=== PATIENT | male | born 1965 | race Hispanic/Latino ===

== ENCOUNTER 2017-10-18 09:11 | Observation (INO) | payer BC, OTHER ==
[~2017-10-18 09:11] MED LIST: MARCAINE-EPI 0.5%-1:200,000 INFILTRATI ONE
[2017-10-18] MEDS ORDERED: ZEMURON IV ONE (10:43)
[2017-10-18] MEDS ORDERED: QUELICIN ONE (10:43)
[2017-10-18] MEDS ORDERED: DIPRIVAN 10 MG/ML IV ONE (10:43)
[2017-10-18] MEDS ORDERED: XYLOCAINE MPF 2% ONE (10:43)
[2017-10-18] MEDS ORDERED: SUBLIMAZE ONE (10:43)
[2017-10-18] MEDS ORDERED: MARCAINE-EPI 0.5%-1:200,000 INFILTRATI ONE (10:50)
--- NOTE | 2017-10-18 10:58 | Anesthesia Day of Surgery ---
Anesthesia Day of Surgery - Day of Surgery Patient Examined: Yes Patient H&P Reviewed: Yes Patient is NPO: Yes
--- NOTE | 2017-10-18 10:58 | Anesthesia Consultation ---
Anesthesia Consult and Med Hx Date of service: 10/18/17 - Airway Anesthetic Teeth Evaluation: Good ROM Head & Neck: Adequate Mental/Hyoid Distance: Adequate Mallampati Class: Class II Intubation Access Assessment: Good - Pulmonary Exam CTA: Yes - Cardiac Exam Cardiac Exam: RRR - Pre-Operative Health Status ASA Pre-Surgery Classification: ASA3 Proposed Anesthetic Plan: General - Pulmonary Hx Sleep Apnea: Yes - Cardiovascular System Hx Hypertension: Yes (6 YEARS) - Endocrine Hx Hypothyroidism: Yes - Other Systems Hx Obesity: Yes
[2017-10-18] MEDS ORDERED: ceFAZolin 2 GM in NACL 0.9% 100 ML IV ONE (11:00)
[2017-10-18] MEDS ORDERED: PEPCID PO NR (11:00)
[2017-10-18] MEDS ORDERED: VERSED IV NR (11:00)
[2017-10-18] MEDS ORDERED: LACTATED RINGERS 1,000 ML IV SCH (11:00)
[2017-10-18] MEDS ORDERED: ZOFRAN ONE ×2 (11:23→14:38)
[2017-10-18] MEDS ORDERED: REGLAN ONE (11:23)
[2017-10-18] MEDS ORDERED: ANCEF/STERILE WATER 2 GM/20 ML 2 GM/20 ML SYRINGE IV NR (12:00)
[2017-10-18] MEDS ORDERED: ROBINUL ONE ×2 (12:01→12:28)
[2017-10-18] MEDS ORDERED: BLOXIVERZ ONE (12:28)
[2017-10-18] MEDS ORDERED: LACTATED RINGERS 1,000 ML ONE (12:34)
[2017-10-18] MEDS ORDERED: ZOFRAN IV PRN (13:34)
--- NOTE | 2017-10-18 13:37 | Operative Report ---
PREOPERATIVE DIAGNOSIS: Rule out recurrent incisional hernia. POSTOPERATIVE DIAGNOSIS: Rule out recurrent incisional hernia. PROCEDURE: 1. Diagnostic laparoscopy. 2. Lysis of extensive omental and intestinal adhesions. 3. Recurrent incisional hernia repair with mesh. SURGEON: Darius Ivan MD HOUSE ADMIN: Yoko Regalado MD. ANESTHESIA: General. ESTIMATED BLOOD LOSS: Minimal. DRAINS: No drains. COMPLICATIONS: No complications. DESCRIPTION OF PROCEDURE: The patient was taken to the operating room, prepped and draped in usual sterile fashion. Veress needle was inserted and CO2 insufflation begun. A 5 mm trocar was then inserted and camera inserted. Inspection of the area revealed extensive omental and intestinal adhesions entrapped into the recurrent incisional hernia site, appeared very slow and tedious. Dissection had to be carried out initially freeing all the omentum and then subsequently slowly dissecting the bowel serosa from the mesh proper. Because of this extensive lysing of adhesions right on the bowel serosa, it was decided that the patient will be admitted and observed overnight to assure no bowel injuries. All adhesions were lysed and the intestine and omentum brought back down to its anatomical position. This area was carefully inspected for any iatrogenic injuries and none were noted. No bleeding or oozing noted. No intestinal leakage or succus entericus noted. A Ventralex large circular mesh was then placed through a 12 mm trocar through the center portion of the hernia site. The mesh was then slowly brought back out snug to the peritoneal surface. Tackers were used to tack the mesh in its entire circumference and then subsequently an internal tacking circles also applied. The area was then carefully inspected and the defect noted to be well covered. No other defects noted. The intestine and omentum were once again inspected and no bleeding or oozing seen. The fascia anterior to the mesh insertion site was also closed with interrupted 0 Vicryl suture. The two lateral 5 mm port sites were removed under direct visualization. No bleeding or oozing noted. The final 5 mm port site was used to expel the CO2 and the trocar removed. All area was then irrigated copiously and dried. Checked for hemostasis and noted to be dry. The skin at all port sites was closed with subcuticular 4-0 Vicryl. A 0.5% Marcaine with epinephrine was infiltrated over all the port sites for postop pain relief. Steri-Strips, 2 x 2 and Tegaderm were applied. Abdominal binder will also be placed. The patient tolerated the procedure well, left the OR in stable condition. JOB# [id number] TRAVIS/CHAUNCEY
[2017-10-18] MEDS: DILAUDID IV PRN ×4 (13:46→14:15)
[2017-10-18] MEDS ORDERED: DILAUDID ONE (14:26)
[2017-10-18] MEDS: D5W/0.45% NACL/KCL 30 MEQ 30 MEQ/1,000 ML BAG IV SCH ×2 (16:24→23:38)
[2017-10-18] MEDS: ZOFRAN IV PRN (17:28)
[2017-10-18] MEDS: ANCEF/NS 1 GM/50 ML 1 GM/50 ML BAG IV SCH ×2 (17:58→21:58)
[2017-10-18] MEDS: MORPHINE IV PRN (21:58)
[2017-10-19 04:46] LABS: Basophils % (Auto) 0.2 % (0.0-1.8); Eosinophils % (Auto) 0.3 % (0.0-4.3); Hematocrit 39.5 % (35.5-45.6); Hemoglobin 13.4 gm/dl (11.8-15.2); Lymphocytes # (Auto) 0.6 K/mm3 (1.2-5.4); Mean Corpuscular HGB Conc 34 % (32-34); Mean Corpuscular Hemoglobin 29 pg (28-32); Mean Corpuscular Volume 87 fl (84-94); Monocytes # (Auto) 1.5 K/mm3 (0.0-0.8); Monocytes % (Auto) 9.9 % (0.0-7.3); Platelet Count 182 K/mm3 (140-440); Red Blood Count 4.57 M/mm3 (3.65-5.03); Red Cell Distribution Width 14.6 % (13.2-15.2)
[2017-10-19 05:02] LABS: Alanine Aminotransferase 21 units/L (7-56); Albumin 3.7 g/dL (3.9-5); BUN/Creatinine Ratio 16; Blood Urea Nitrogen 14 mg/dL (9-20); Calcium 8.7 mg/dL (8.4-10.2); Hemolysis Index 2
[2017-10-19] MEDS: ZOFRAN IV PRN ×3 (05:19→20:31)
[2017-10-19] MEDS: MORPHINE IV PRN (05:19)
--- NOTE | 2017-10-19 07:50 | Progress Note ---
Assessment and Plan POD #1 Pt feeling well but had episode of N&V with ice chips this am Abd soft. incisional tenderness. hypoactive BS stable will need to keep npo and observe x another 24 hrs. Do not want pt wrenching or vomiting with recent incisional hernia repair re-assess in am d/c K from IVF Selected Entries 10/18/17 10/19/17 23:46 05:30 Temperature 98.6 F Pulse Rate 77 Respiratory 18 Rate Blood Pressure 118/60 Laboratory Tests 10/19/17 10/19/17 04:10 04:10 WBC 15.4 H Hgb 13.4 Hct 39.5 Sodium 138 Potassium 4.5 Chloride 100.4 BUN 14 Creatinine 0.9 Objective Vital Signs - 12hr 10/18/17 10/18/17 10/19/17 19:48 23:46 05:30 Temperature 98.3 F 98.6 F Pulse Rate 71 63 77 Respiratory 20 18 18 Rate Blood Pressure 133/71 112/60 118/60 O2 Sat by Pulse 97 96 92 Oximetry - Labs 10/19/17 04:10 10/19/17 04:10 Diabetes panel 10/19/17 Range/Units 04:10 Sodium 138 (137-145) mmol/L Potassium 4.5 (3.6-5.0) mmol/L Chloride 100.4 (98-107) mmol/L Carbon Dioxide 26 (22-30) mmol/L BUN 14 (9-20) mg/dL Creatinine 0.9 (0.8-1.5) mg/dL Glucose 132 H (75-100) mg/dL Calcium 8.7 (8.4-10.2) mg/dL AST 15 (5-40) units/L ALT 21 (7-56) units/L Alkaline Phosphatase 57 (35-129) units/L Total Protein 6.3 (6.3-8.2) g/dL Albumin 3.7 L (3.9-5) g/dL Calcium panel 10/19/17 Range/Units 04:10 Calcium 8.7 (8.4-10.2) mg/dL Albumin 3.7 L (3.9-5) g/dL Pituitary panel 10/19/17 Range/Units 04:10 Sodium 138 (137-145) mmol/L Potassium 4.5 (3.6-5.0) mmol/L Chloride 100.4 (98-107) mmol/L Carbon Dioxide 26 (22-30) mmol/L BUN 14 (9-20) mg/dL Creatinine 0.9 (0.8-1.5) mg/dL Glucose 132 H (75-100) mg/dL Calcium 8.7 (8.4-10.2) mg/dL Adrenal panel 10/19/17 Range/Units 04:10 Sodium 138 (137-145) mmol/L Potassium 4.5 (3.6-5.0) mmol/L Chloride 100.4 (98-107) mmol/L Carbon Dioxide 26 (22-30) mmol/L BUN 14 (9-20) mg/dL Creatinine 0.9 (0.8-1.5) mg/dL Glucose 132 H (75-100) mg/dL Calcium 8.7 (8.4-10.2) mg/dL Total Bilirubin 0.40 (0.1-1.2) mg/dL AST 15 (5-40) units/L ALT 21 (7-56) units/L Alkaline Phosphatase 57 (35-129) units/L Total Protein 6.3 (6.3-8.2) g/dL Albumin 3.7 L (3.9-5) g/dL
--- NOTE | 2017-10-19 08:48 | Consultation ---
History of Present Illness - Reason for Consult Consult date: 10/19/17 Hypertension, Hypothyroidism, sleep apnea Past History Past Medical History: hypertension, hypothyroidism, other (Obstructive sleep apnea) Past Surgical History: hernia repair Social history: , lives with family, full code. denies: smoking, alcohol abuse Family history: hypertension Medications and Allergies Allergies Allergy/AdvReac Type Severity Reaction Status Date / Time No Known Allergies Allergy Verified 10/15/17 13:31 Home Medications Medication Instructions Recorded Confirmed Last Taken Type Fexofenadine HCl [Emily Allergy] 180 mg PO DAILY 10/15/17 10/15/17 10/17/17 History Levothyroxine [Synthroid] 88 mcg PO QAM 10/15/17 10/15/17 10/18/17 07:20 History Losartan [Cozaar] 100 mg PO QDAY 10/15/17 10/15/17 10/18/17 07:20 History diphenhydrAMINE [Benadryl CAP] 50 mg PO Q8HR PRN 10/15/17 10/15/17 10/17/17 History Active Meds: Active Medications Dextrose/Sodium Chloride (D5/0.45ns) 1,000 mls @ 125 mls/hr IV DIRECT DIA Morphine Sulfate (Morphine) 2 mg IV Q3H PRN PRN Reason: Pain, Moderate (4-6) Last Admin: 10/19/17 05:19 Dose: 2 mg Ondansetron HCl (Zofran) 4 mg IV Q4H PRN PRN Reason: N/V unrelieved by Reglan Last Admin: 10/19/17 05:19 Dose: 4 mg Oxycodone/Acetaminophen (Percocet 5/325) 1 tab PO Q6H PRN PRN Reason: Pain, Moderate (4-6) Exam - Physical Exam Narrative exam: GEN:Not in acute distress, HEENT: Normocephalic, atraumatic, Neck: supple, No JVD Lungs:Clear to auscultation bilaterally, no crackles, no wheeze Heart:S1 and S2 reg, no murmurs, rubs or gallop Abd:soft, non-tender, non-distended, Normal bowel sounds Ext: No edema, clubbing or cyanosis Neuro:AAO x 3, No focal neurological signs - Constitutional Vitals: Temp Pulse Resp BP Pulse Ox 97.9 F 71 18 103/60 92 10/19/17 07:37 10/19/17 07:37 10/19/17 07:37 10/19/17 07:37 10/19/17 07:37 Results - Labs CBC & Chem 7: 10/19/17 04:10 10/19/17 04:10 Labs: Abnormal lab results 10/19/17 10/19/17 Range/Units 04:10 04:10 WBC 15.4 H (4.5-11.0) K/mm3 Lymph % (Auto) 4.0 L (13.4-35.0) % Traverse % (Auto) 9.9 H (0.0-7.3) % Lymph # 0.6 L (1.2-5.4) K/mm3 Traverse # 1.5 H (0.0-0.8) K/mm3 Seg Neutrophils % 85.6 H (40.0-70.0) % Seg Neutrophils # 13.2 H (1.8-7.7) K/mm3 Glucose 132 H (75-100) mg/dL Albumin 3.7 L (3.9-5) g/dL Assessment and Plan s/p Hernia repair. management per Surgeon, attending Hypertension. BP stable. Will resume home meds when he starts po Hypothyroidism Sleep apnea. CPAP at night, Resp Therapist consulted Full code status
[2017-10-19] MEDS ORDERED: D5/0.45NS 1,000 ML IV SCH (09:00)
[2017-10-19] MEDS: PERCOCET 5/325 PO PRN ×2 (13:09→20:31)
[2017-10-19] MEDS ORDERED: DULCOLAX PR PRN (13:50)
[2017-10-20 11:48] VITALS: BP 149/87
--- NOTE | 2017-10-20 12:34 | Progress Note ---
Assessment and Plan Assessment and plan: s/p Hernia repair. management per Surgeon, attending Hypertension. BP stable. Will resume home meds when he starts oral feeds ,likely later today Hypothyroidism Sleep apnea. CPAP at night, Resp Therapist consulted Full code status History Interval history: Feels better, wants to eat No more vomiting Hospitalist Physical - Physical exam Narrative exam: GEN:Not in acute distress, HEENT: Normocephalic, atraumatic, Neck: supple, No JVD Lungs:Clear to auscultation bilaterally, no crackles, no wheeze Heart:S1 and S2 reg, no murmurs, rubs or gallop Abd:soft, non-tender, non-distended, Normal bowel sounds, abdominal binder covering surgical wound Ext: No edema, clubbing or cyanosis Neuro:AAO x 3, No focal neurological signs - Constitutional Vitals: Temp Pulse Resp BP Pulse Ox 97 F L 72 18 149/87 96 10/20/17 11:47 10/20/17 11:47 10/20/17 11:47 10/20/17 11:47 10/20/17 11:47 Results - Labs CBC & Chem 7: 10/19/17 04:10 10/19/17 04:10 Labs: Laboratory Last Values WBC 15.4 K/mm3 (4.5-11.0) H 10/19/17 04:10 RBC 4.57 M/mm3 (3.65-5.03) 10/19/17 04:10 Hgb 13.4 gm/dl (11.8-15.2) 10/19/17 04:10 Hct 39.5 % (35.5-45.6) 10/19/17 04:10 MCV 87 fl (84-94) 10/19/17 04:10 MCH 29 pg (28-32) 10/19/17 04:10 MCHC 34 % (32-34) 10/19/17 04:10 RDW 14.6 % (13.2-15.2) 10/19/17 04:10 Plt Count 182 K/mm3 (140-440) 10/19/17 04:10 Lymph % (Auto) 4.0 % (13.4-35.0) L 10/19/17 04:10 Wood % (Auto) 9.9 % (0.0-7.3) H 10/19/17 04:10 Eos % (Auto) 0.3 % (0.0-4.3) 10/19/17 04:10 Baso % (Auto) 0.2 % (0.0-1.8) 10/19/17 04:10 Lymph # 0.6 K/mm3 (1.2-5.4) L 10/19/17 04:10 Wood # 1.5 K/mm3 (0.0-0.8) H 10/19/17 04:10 Eos # 0.0 K/mm3 (0.0-0.4) 10/19/17 04:10 Baso # 0.0 K/mm3 (0.0-0.1) 10/19/17 04:10 Seg Neutrophils % 85.6 % (40.0-70.0) H 10/19/17 04:10 Seg Neutrophils # 13.2 K/mm3 (1.8-7.7) H 10/19/17 04:10 Sodium 138 mmol/L (137-145) 10/19/17 04:10 Potassium 4.5 mmol/L (3.6-5.0) 10/19/17 04:10 Chloride 100.4 mmol/L (98-107) 10/19/17 04:10 Carbon Dioxide 26 mmol/L (22-30) 10/19/17 04:10 Anion Gap 16 mmol/L 10/19/17 04:10 BUN 14 mg/dL (9-20) 10/19/17 04:10 Creatinine 0.9 mg/dL (0.8-1.5) 10/19/17 04:10 Estimated GFR > 60 ml/min 10/19/17 04:10 BUN/Creatinine Ratio 16 % 10/19/17 04:10 Glucose 132 mg/dL (75-100) H 10/19/17 04:10 Calcium 8.7 mg/dL (8.4-10.2) 10/19/17 04:10 Total Bilirubin 0.40 mg/dL (0.1-1.2) 10/19/17 04:10 AST 15 units/L (5-40) 10/19/17 04:10 ALT 21 units/L (7-56) 10/19/17 04:10 Alkaline Phosphatase 57 units/L (35-129) 10/19/17 04:10 Total Protein 6.3 g/dL (6.3-8.2) 10/19/17 04:10 Albumin 3.7 g/dL (3.9-5) L 10/19/17 04:10 Albumin/Globulin Ratio 1.4 % 10/19/17 04:10
--- NOTE | 2017-10-20 12:35 | Progress Note ---
Assessment and Plan POD # 2 Pt feeling well without compl. + flatus. ambulating down halls. hungry Abd soft. non tender. hypoactive BS surgically stable attempt cl liq diet may d/c today if diet ang advance to reg diet at home in am rto this Tues Selected Entries 10/20/17 11:47 Temperature 97 F L Pulse Rate 72 Respiratory 18 Rate Blood Pressure 149/87 [Left] Laboratory Tests 10/19/17 10/19/17 04:10 04:10 WBC 15.4 H Hgb 13.4 Hct 39.5 Sodium 138 Potassium 4.5 Chloride 100.4 BUN 14 Creatinine 0.9 Objective Vital Signs - 12hr 10/20/17 10/20/17 10/20/17 04:20 07:09 11:47 Temperature 98.6 F 97.9 F 97 F L Pulse Rate 63 66 72 Respiratory 18 20 18 Rate Blood Pressure 141/76 143/79 Blood Pressure 149/87 [Left] O2 Sat by Pulse 93 96 96 Oximetry - Labs 10/19/17 04:10 10/19/17 04:10
--- NOTE | 2017-10-20 12:42 | Discharge Summary ---
Providers - Providers Date of Admission: 10/18/17 12:40 Attending physician: LINN ELY 10/18/17 12:44 Consult to Physician [CONS] Routine Comment: Consulting Provider: ABHAY RICHARDSON Physician Instructions: Reason For Exam: medical management Primary care physician: ABIODUN ASENCIO Hospitalization Condition: Stable Disposition: DC-01 TO HOME OR SELFCARE Core Measure Documentation - Palliative Care Palliative Care/ Comfort Measures: Not Applicable - Core Measures Any of the following diagnoses?: none Exam - Constitutional Vitals: Temp Pulse Resp BP Pulse Ox 97 F L 72 18 149/87 96 10/20/17 11:47 10/20/17 11:47 10/20/17 11:47 10/20/17 11:47 10/20/17 11:47 Plan Activity: other (cl liq diet no carbonated. may d/c today if diet ang advance to solid diet at home in am. no lifting. keep binder x 3 wks. dressings dry x 5 days) Weight Bearing Status: Non-Weight Bearing Diet: other Wound: keep clean and dry Additional Instructions: surfak I po q am x 3. aleve I po q 6-8 hrs prn for breakthrough pain Follow up with: LINN ELY MD [Staff Physician] - 10/23/17
--- NOTE | 2017-10-20 12:57 | Discharge Summary ---
DISCHARGE DIAGNOSES: 1. Recurrent incisional hernia with significant omental, intestinal adhesions. 2. Hypertension. 3. Morbid obesity. PROCEDURE WHILE IN THE HOSPITAL: Laparoscopic lysis of extensive intestinal, omental adhesions as well as laparoscopic repair of recurrent incisional hernia with mesh. HOSPITAL COURSE: The patient is a pleasant 52-year-old gentleman who presented to the office with a chief complaint of periumbilical pain. The patient had had previous laparoscopic surgery and subsequently developed hernia at the infraumbilical trocar site. This was apparently repaired with mesh previously, but has since recurred. The patient was thus referred to me for repair as the area was symptomatic and bulging. The patient underwent repair without incident. At time of surgery, extensive intestinal, omental adhesions were noted, which were adhered to the undersurface of the previously placed mesh. Recurrent incisional hernia was also confirmed. The patient's postoperative course was essentially stable. He was originally kept 23-hour observation because of the large amount of very adhered intestine that had to be dissected from the mesh site. Subsequently to this, the patient did complain of nausea after 23 hours and did have some persistent abdominal distention. Thus, the patient was observed for following 24 hours. Hospitalist evaluation was also obtained to manage the patient's hypertension, sleep apnea, etc. Currently, the patient is postoperative day #2, afebrile and feeling well. He has since passed flatus and has no complaints. He has ambulated down the halls and is hungry. Abdomen is soft and nontender. Bowel sounds are present though somewhat hypoactive. The patient will thus be started on a clear liquid diet. No carbonated drinks this morning and will tentatively be discharged today if his diet is well tolerated. The patient has been instructed to call me immediately if he has any evidence of nausea, vomiting, abdominal pain, or fever. If not, the patient has been instructed to advance himself to a solid diet at home in the morning and follow up in the office this Sunday. JOB# [id number] TRAVIS/CHAUNCEY
== END 2017-10-20 15:42 | disposition home or self-care (01) ==
LOC: OR 09:11 → 3B-SURG 12:40
PROVIDERS: ADMIT Surgery; ATTEND Surgery
DX: K43.9 Ventral hernia without obstruction or gangrene (principal)
CPT/HCPCS: 36415; 49657; 80053; 85025; 96365; 96375; 96376; C1781; G0378; J0330; J0690; J1170; J2250; J2270; J2405; J2704; J2710; J2765; J3010; J7120

== ENCOUNTER 2018-10-23 22:17 | Emergency (ER) | payer OTHER ==
--- NOTE | 2018-10-23 22:33 | Emergency Department Report ---
Blank Doc - Documentation Documentation: This is a 53-year-old male that presents with right wrist pain s/p fall. This initial assessment/diagnostic orders/clinical plan/treatment(s) is/are subject to change based on patient's health status, clinical progression and re- assessment by fellow clinical providers in the ED. Further treatment and workup at subsequent clinical providers discretion. Patient/guardians urged not to elope from the ED as their condition may be serious if not clinically assessed and managed. Initial orders include: 1- Patient sent to [facility] for further evaluation and treatment 2- xrays
--- NOTE | 2018-10-23 23:21 | XRay Report ---
RIGHT WRIST 2 VIEWS INDICATION / CLINICAL INFORMATION: pain s/p fall. COMPARISON: None available. FINDINGS: There is a moderately displaced comminuted fracture of the right distal radial metaphysis with extens ion into radiocarpal and distal radioulnar joints. A mildly displaced ulna styloid fracture is also n oted. Several avulsion fracture fragments are seen along the dorsal aspect of the wrist with donor site see n in the dorsal aspect of the triquetral bone area and Marked soft tissue swelling is seen within the right wrist. Signer Name: Maciej Webb MD Signed: 10/23/2018 11:17 PM Workstation Name: [id number]
[2018-10-23] MEDS ORDERED: IBUPROFEN PO ONE (23:42)
[2018-10-23] MEDS ORDERED: PERCOCET 5/325 PO ONE (23:42)
--- NOTE | 2018-10-23 23:58 | Emergency Department Report ---
ED Fall HPI - General Chief Complaint: Extremity Injury, Upper Stated Complaint: RT WRIST INJURY/FALL Time Seen by Provider: 10/23/18 22:33 Source: patient Mode of arrival: Ambulatory - History of Present Illness Initial Comments: 53-year-old male presents to the emergency room for right wrist pain and swelling status post fall 40 minutes prior to arrival. Patient states he stepped down off a porch step wrong and fell on his right wrist. Patient reports he took a hydrocodone prior to arrival which he reports has not touched his pain. Patient does have a past medical history of hypothyroidism and hypertension.. Patient is currently taking Lorcet R1 100 mg daily and levothyroxine patient has an allergy to Keflex. Patient reports his pain is 8 out of 10. MD Complaint: fall Onset/Timin -: minutes(s) (prior to arrival) Fall From: standing Fall Witnessed: yes, by family Place Fall Occurred: home Loss of Consciousness: none Prolonged Down Time?: no Symptoms Prior to Fall: none Location - Extremities: Right: Hand (wrist) Severity: severe Severity scale (0 -10): 8 Quality: sharp, stabbing, aching Context: tripped/slipped Associated Symptoms: denies: headache, neck pain, numbness, weakness, chest paint, shortness of breath, abdominal pain, hematuria, unable to walk, lightheaded, vertigo, confusion, other - Related Data Home Medications Medication Instructions Recorded Confirmed Last Taken Levothyroxine [Synthroid] 88 mcg PO QAM 10/15/17 12/06/17 10/23/18 Losartan [Cozaar] 100 mg PO QDAY 10/24/18 10/24/18 10/23/18 08:00 Previous Rx's Medication Instructions Recorded Last Taken Type Ciprofloxacin HCl [Cipro] 500 mg PO BID 7 Days #14 tablet 12/14/17 Unknown Rx Linezolid [Zyvox] 600 mg PO BID 7 Days #14 tablet 12/14/17 10/23/18 Rx Ibuprofen [Motrin 800 MG tab] 800 mg PO Q8HR PRN #30 tablet 10/24/18 Unknown Rx Oxycodone HCl/Acetaminophen 1 each PO Q6HR PRN #12 tablet 10/24/18 Unknown Rx [Percocet 7.5/325 mg] Allergies Allergy/AdvReac Type Severity Reaction Status Date / Time cephalexin [From Keflex] Allergy Unknown Verified 12/04/17 12:48 ED Review of Systems ROS: Stated complaint: RT WRIST INJURY/FALL Other details as noted in HPI ED Past Medical Hx - Past Medical History Previous Medical History?: Yes Hx Hypertension: Yes (2011) Hx Congestive Heart Failure: No Hx Diabetes: No Hx Asthma: No Hx COPD: No Hx HIV: No - Surgical History Past Surgical History?: Yes Additional Surgical History: Repair of umbilical hernia. - Social History Smoking Status: Never Smoker Substance Use Type: None - Medications Home Medications: Home Medications Medication Instructions Recorded Confirmed Last Taken Type Levothyroxine [Synthroid] 88 mcg PO QAM 10/15/17 12/06/17 10/23/18 History Ciprofloxacin HCl [Cipro] 500 mg PO BID 7 Days #14 tablet 12/14/17 Unknown Rx Linezolid [Zyvox] 600 mg PO BID 7 Days #14 tablet 12/14/17 10/23/18 Rx Ibuprofen [Motrin 800 MG tab] 800 mg PO Q8HR PRN #30 tablet 10/24/18 Unknown Rx Losartan [Cozaar] 100 mg PO QDAY 10/24/18 10/24/18 10/23/18 08:00 History Oxycodone HCl/Acetaminophen 1 each PO Q6HR PRN #12 tablet 10/24/18 Unknown Rx [Percocet 7.5/325 mg] ED Physical Exam - General Limitations: No Limitations General appearance: alert, in no apparent distress - Head Head exam: Present: atraumatic, normocephalic - Eye Eye exam: Present: normal appearance - ENT ENT exam: Present: mucous membranes moist - Expanded Upper Extremity Exam Right Shoulder Exam: Present: normal inspection, full ROM Upper Arm exam: Present: normal inspection, full ROM Elbow exam: Present: normal inspection, full ROM Forearm Wrist exam: Present: tenderness, swelling, deformity, tenderness over anatomical snuff box, pain with axial thumb loading. Absent: full ROM Hand Wrist exam: Present: tenderness, swelling. Absent: full ROM - Neurological Exam Neurological exam: Present: alert, oriented X3 - Psychiatric Psychiatric exam: Present: normal affect, normal mood - Skin Skin exam: Present: warm, dry, intact, normal color. Absent: rash ED Course Vital Signs 10/23/18 10/24/18 10/24/18 22:33 00:32 00:34 Temperature 98.6 F Pulse Rate 76 Respiratory 16 16 16 Rate Blood Pressure 130/78 O2 Sat by Pulse 97 Oximetry ED Medical Decision Making - Radiology Data Radiology results: report reviewed Patient: ALEX BARRY MR#: [id number] 49 : 1965 Acct:[id number] Age/Sex: 53 / M ADM Date: 10/23/18 Loc: ED Attending Dr: Ordering Physician: CAROL REBOLLEDO NP Date of Service: 10/23/18 Procedure(s): XR wrist 2V RT Accession Number(s): [id number] cc: CAROL REBOLLEDO NP Fluoro Time In Minutes: RIGHT WRIST 2 VIEWS INDICATION / CLINICAL INFORMATION: pain s/p fall. COMPARISON: None available. FINDINGS: There is a moderately displaced comminuted fracture of the right distal radial metaphysis with extension into radiocarpal and distal radioulnar joints. A mildly displaced ulna styloid fracture is also noted. Several avulsion fracture fragments are seen along the dorsal aspect of the wrist with donor site seen in the dorsal aspect of the triquetral bone area and Marked soft tissue swelling is seen within the right wrist. Signer Name: Maciej Webb MD Signed: 10/23/2018 11:17 PM Workstation Name: [id number] Transcribed By: TL Dictated By: Maciej Webb MD Electronically Authenticated By: Maciej Webb MD Signed Date/Time: 10/23/182316 DD/ 14 TD/TT: - Medical Decision Making 53-year-old male presents to the emergency room for right wrist pain and swelling status post fall 40 minutes prior to arrival. Patient states he stepped down off a porch step wrong and fell on his right wrist. Patient reports he took a hydrocodone prior to arrival which he reports has not touched his pain. Patient does have a past medical history of hypothyroidism and hypertension.. Patient is currently taking Lorcet R1 100 mg daily and levothyroxine patient has an allergy to Keflex. Patient reports his pain is 8 out of 10. [place] to regarding case he recommends a closed reduction and splint short volar splint and to follow-up in one week with Dr. Patel. Critical care attestation.: If time is entered above; I have spent that time in minutes in the direct care of this critically ill patient, excluding procedure time. ED Disposition Clinical Impression: Wrist fracture, closed Qualifiers: Encounter type: initial encounter Laterality: right Qualified Code(s): S62.101A - Fracture of unspecified carpal bone, right wrist, initial encounter for closed fracture Disposition: - TO HOME OR SELFCARE Is pt being admited?: No Does the pt Need Aspirin: No Condition: Stable Instructions: Wrist Fracture in Adults (ED) Additional Instructions: Take pain medication as needed. Do not operate heavy machinery while taking Percocet. Please be sure to drink plenty of water and [id number] Colace as needed for constipation. Is very important for you to follow up with an orthopedic provider I have listed several below for your convenience. Prescriptions: Ibuprofen [Motrin 800 MG tab] 800 mg PO Q8HR PRN #30 tablet PRN Reason: Pain , Severe (7-10) Oxycodone HCl/Acetaminophen [Percocet 7.5/325 mg] 1 each PO Q6HR PRN #12 tablet PRN Reason: Pain Referrals: PRIMARY CAREMD [Primary Care Provider] - 3-5 Days TASHA SANTA MD [Staff Physician] - 3-5 Days [facility] [Provider Group] - 3-5 Days Forms: Work/School Release Form(ED), Accompanied Note
[2018-10-24] MEDS ORDERED: XYLOCAINE 1% 20 mL INFILTRATI ONE (00:27)
--- NOTE | 2018-10-24 03:13 | XRay Report ---
RIGHT WRIST 2 VIEWS INDICATION / CLINICAL INFORMATION: post reduction. COMPARISON: Right wrist x-ray yesterday FINDINGS: A fiberglass splint has been applied since prior exam. Comminuted moderately displaced fracture of ri ght distal radius and transverse mildly displaced fracture of ulna styloid appear unchanged. Signer Name: Maciej Webb MD Signed: 10/24/2018 3:09 AM Workstation Name: [id number]
[2018-10-24 07:09] VITALS: BP 122/68
== END 2018-10-24 04:10 | disposition home or self-care (01) ==
LOC: ED 22:17
DX: S62.101A Fracture of unspecified carpal bone, right wrist, initial encounter for closed fracture (principal); W19.XXXA Unspecified fall, initial encounter; Y93.89 Activity, other specified; Y92.89 Other specified places as the place of occurrence of the external cause; Y99.8 Other external cause status

== ENCOUNTER 2018-10-31 08:00 | Day surgery (SDC) | payer OTHER ==
[~2018-10-31 08:00] MED LIST changes: +LACTATED RINGERS 1,000 ML IV SCH; -MARCAINE-EPI 0.5%-1:200,000 INFILTRATI ONE; +NEURONTIN PO NR; +SUBLIMAZE IV PRN; +VERSED IV NR
[2018-10-31] MEDS ORDERED: SUBLIMAZE IV PRN (08:31)
[2018-10-31] MEDS ORDERED: DECADRON ONE ×2 (08:43→12:35)
[2018-10-31] MEDS ORDERED: MARCAINE 0.25% INFILTRATI ONE (08:43)
--- NOTE | 2018-10-31 08:44 | Anesthesia Day of Surgery ---
Anesthesia Day of Surgery - Day of Surgery Patient Examined: Yes Patient H&P Reviewed: Yes Patient is NPO: Yes
--- NOTE | 2018-10-31 08:44 | Anesthesia Consultation ---
Anesthesia Consult and Med Hx Date of service: 10/31/18 - Airway Anesthetic Teeth Evaluation: Good ROM Head & Neck: Adequate Mental/Hyoid Distance: Adequate Mallampati Class: Class II Intubation Access Assessment: Possibly Difficult (likely difficult mask - large martinez) - Pulmonary Exam CTA: Yes - Cardiac Exam Cardiac Exam: RRR - Pre-Operative Health Status ASA Pre-Surgery Classification: ASA3 Proposed Anesthetic Plan: General Nerve Block: supraclavicular - Pulmonary Hx Smoking: No Hx Respiratory Symptoms: No Hx Sleep Apnea: Yes (compliant with CPAP) - Cardiovascular System Hx Hypertension: Yes (took losartan) Hx Heart Attack/AMI: No - Central Nervous System CVA: No - Gastrointestinal Hx Gastroesophageal Reflux Disease: No - Endocrine Hx Renal Disease: No Hx Liver Disease: No Hx Insulin Dependent Diabetes: No Hx Non-Insulin Dependent Diabetes: No Hx Hypothyroidism: Yes - Other Systems Hx Obesity: Yes (BMI 44) - Additional Comments Anesthesia Medical History Comments: No hx anesthetic complications. Plan nerve block for post op analgesia.
[2018-10-31] MEDS ORDERED: VANCOMYCIN/NS 1 GM/250 ML 1 GM/250 ML BAG IV NR (09:00)
[2018-10-31] MEDS ORDERED: VANCOMYCIN 2,000 MG in NACL 0.9% 500 ML 500 ML IV ONE (09:30)
[2018-10-31] MEDS ORDERED: XYLOCAINE MPF 2% ONE (09:30)
[2018-10-31] MEDS ORDERED: TRANSDERM-SCOP TD ONE (10:37)
[2018-10-31] MEDS ORDERED: TRANSDERM-SCOP TD NR (11:00)
[2018-10-31] MEDS ORDERED: DILAUDID ONE (11:02)
[2018-10-31] MEDS ORDERED: DIPRIVAN 10 MG/ML IV ONE (11:03)
[2018-10-31] MEDS ORDERED: ZOFRAN ONE (12:35)
[2018-10-31] MEDS ORDERED: ROBINUL ONE (12:42)
--- NOTE | 2018-10-31 12:58 | Procedure Note ---
Date of procedure: 10/31/18 Pre-op diagnosis: displaced right distal radius fracture Post-op diagnosis: same Procedure: Open reduction internal fixation right distal radius Procedure The patient was brought to the OR after being given a scalene nerve block for postop pain management, he was placed in the OR table in supine position following induction and intubation by anesthesia the patient's right upper extremity was prepped and draped in the usual sterile manner. A timeout pro cedure was done to identify the patient and the correct operative site. The arm was exsanguinated followed by inflation of the pneumatic tourniquet to 250 mmHg. A volar incision was made along the distal radius as is taken down sharply through skin and subcutaneous the flexor carpi radialis tendon was seen next the incision was carried deep to this structure we encountered the quadratus tendon this was then debrided from the distal radius using a periosteal elevator the fracture site was seen she was noted to have a small comminuted fragment along the volar surface after the gentle manipulation the fracture fragments were reduced into a more anatomic position next the right distal radius locking plate was applied via C-arm care was taken to insert both locking and nonlocking screws of various lengths AP and lateral views were obtained showing good reduction at the fracture and in placement of our hardware the wrist was taken through a range of motion and was found to be stable next the wound was copiously irrigated and was closed in a standard routine fashion. Dressings were applied as well as a well-padded volar splint the patient tolerated the procedure there were no complications and she was sent to postanesthesia recovery in a stable condition Anesthesia: MAC, regional Surgeon: TASHA SANTA Change Number Operator: ABHAY LOPEZ Estimated blood loss: 50-100ml Pathology: none Condition: stable Disposition: PACU
--- NOTE | 2018-10-31 15:44 | XRay Report ---
RIGHT WRIST 2 VIEWS INDICATION: RT WRIST FX /ORIF COMPARISON: 10/24/2018 FINDINGS: Intraoperative images demonstrate a fixation plate and screws at the distal radius traversing previou sly described fractures. Relatively anatomic alignment of fragments. The ulnar styloid fracture is un changed. IMPRESSION: Status post ORIF comminuted right distal radius fracture. Signer Name: Todd Ozuna MD Signed: 10/31/2018 3:39 PM Workstation Name: [id number]
--- NOTE | 2018-10-31 16:25 | Post Anesthesia Evaluation ---
- Post Anesthesia Evaluation Patient Participated: Yes Airway Patent: Yes Stable Respiratory Function: Yes Nausea/Vomiting: No Temp > 96.8F: Yes Pain Manageable: Yes Adequeate Hydration: Yes Anesthesia Complications: No Block Receding Appropriately: Not Applicable (Block for post-op pain. Patient with some motor function. Sling provided.)
[2018-10-31 19:51] VITALS: BP 118/68
== END 2018-10-31 08:01 | disposition home or self-care (01) ==
LOC: OR 08:00
PROVIDERS: ATTEND Orthopaedic Surgery
DX: S52.571A Other intraarticular fracture of lower end of right radius, initial encounter for closed fracture (principal); E66.01 Morbid (severe) obesity due to excess calories; G43.909 Migraine, unspecified, not intractable, without status migrainosus; I10 Essential (primary) hypertension; G47.30 Sleep apnea, unspecified; E03.9 Hypothyroidism, unspecified; Z98.890 Other specified postprocedural states; Z80.1 Family history of malignant neoplasm of trachea, bronchus and lung; Z79.899 Other long term (current) drug therapy; Z68.41 Body mass index [BMI] 40.0-44.9, adult; Z98.49 Cataract extraction status, unspecified eye; Z90.49 Acquired absence of other specified parts of digestive tract; Z87.442 Personal history of urinary calculi; Z86.2 Personal history of diseases of the blood and blood-forming organs and certain disorders involving the immune mechanism; W19.XXXA Unspecified fall, initial encounter; Y93.89 Activity, other specified; Y92.89 Other specified places as the place of occurrence of the external cause; Y99.8 Other external cause status
CPT/HCPCS: 25609; 64415; 73100; C1713; J1100; J2250; J2405; J2704; J3010; J3370; J7040; J7120; J1170

== ENCOUNTER 2021-10-10 13:35 | Emergency (ER) | payer OTHER ==
[2021-10-10 15:00] VITALS: BP 180/89
--- NOTE | 2021-10-10 15:02 | Emergency Department Report ---
Blank Doc - Documentation Documentation: 56-year-old male that presents with left flank pain. 1- This is a initial triage assessment/medical screening only. Full assessment and work-up will be completed once the patient is in proper hospital gown, ED bed and in a private room setting. This initial assessment/diagnostic orders/clinical plan/ treatment(s) is/are subject to change based on pt's health status, clinical progression and re-assessment by fellow clinical providers in the ED. Further treatment and workup at subsequent clinical providers discretion. Patient/guardians urged not to elope from ED as their condition may be serious if not clinically assessed and managed. 2-UA The patient was evaluated in the emergency department for symptoms described in the history of present illness. He/she was evaluated in the context of the global COVID-19 pandemic, which necessitated consideration that the patient might be at risk for infection with the virus that causes COVID-19. Institutional protocols and algorithms that pertain to the evaluation of patients at risk for COVID-19 are in a state of rapid change based on information released by regulatory bodies including the CDC and federal and state organizations. These policies and algorithms were followed during the patient's care in the emergency department. Please note that these policies, procedures and recommendations changed on a rapid basis.
[2021-10-10 18:19] LABS: Hyaline Casts,Urine 1 /LPF; Mucus,Urine FEW /HPF
[2021-10-10 19:35] LABS: Color,Urine Yellow (Yellow)
== END 2021-10-11 12:07 | disposition left against medical advice (07) ==
LOC: ED 13:35
DX: R10.9 Unspecified abdominal pain (principal); Z53.21 Procedure and treatment not carried out due to patient leaving prior to being seen by health care provider
CPT/HCPCS: 81001